=== PATIENT | female | born 1945 | race Caucasian/White ===

== ENCOUNTER 2021-10-09 18:48 | Emergency (ER) | payer OTHER, BC ==
[~2021-10-09] VITALS: Ht 154.9 cm; Wt 56.2 kg
[2021-10-09 18:54] VITALS: BP 142/77
--- NOTE | 2021-10-09 19:10 | NUR ---
DR MEADOWS AT BEDSIDE FOR EVAL
--- NOTE | 2021-10-09 19:28 | NUR ---
75 Y/O FEMALE C/O HEADACHES, GENERAL WEAKNESS AND DIFFICULTY WALKING X1 MONTH, STATES SHE SAW HER PCP AND WAS REFERRED TO NEUROLOGIST BUT HAS NOT SEE HIM YET. DENIES CP, SOB. ERMD AT BEDSIDE FOR NIH, NIH 7, LEFT SIDED NEGLECT PMH: MULTIPLE MYELOMA NKA
[2021-10-09 19:31] LABS: BASOPHILS % (AUTO) 0.5 % (0.0-2.0); EOSINOPHILS # (AUTO) 0.1 K/uL (0-0.4); EOSINOPHILS % (AUTO) 1.2 % (0.0-4.0); HEMOGLOBIN 12.2 g/dL (12.0-16.0); LYMPHOCYTES # (AUTO) 3.1 K/uL (2.5-16.5); LYMPHOCYTES % (AUTO) 36.2 % (20.5-51.1); MEAN CORPUSCULAR HEMOGLOBIN 29 pg (27-31); MEAN CORPUSCULAR HGB CONC 34 g/dL (33-37); MONOCYTES # (AUTO) 1.1 K/uL (0.8-1.0); NEUTROPHILS # (AUTO) 4.2 K/uL (1.8-7.7); NEUTROPHILS % (AUTO) 49.1 % (42.2-75.2); PLATELET COUNT (AUTO) 315 K/uL (140-450); RED BLOOD CELL COUNT(AUTO) 4.19 MIL/uL (4.20-5.40); RED CELL DISTRIBUTION WIDTH 14.6 % (11.6-13.7); WHITE BLOOD COUNT (AUTO) 8.6 K/uL (4.8-10.8)
--- NOTE | 2021-10-09 19:34 | NUR ---
Pt report given to KRISTINA RN. Transfer of care at this time.
--- NOTE | 2021-10-09 19:42 | NUR ---
PT TAKEN TO CT VIA [facility]
[2021-10-09 20:00] LABS: PROTHROMBIN TIME 10.3 secs (10.8-13.4)
[2021-10-09] MEDS ORDERED: DEXAMETHASONE 10 MG/ML VIAL IVP ONE (20:05)
[2021-10-09 20:46] LABS: ALBUMIN 3.7 g/dL (3.4-5.0); ANION GAP 15.1 (8-16); ASPARTATE AMINOTRANSFERASE 16 U/L (15-37); CARBON DIOXIDE 24.8 mmol/L (21-32); CHLORIDE 102 mmol/L (98-107); GLUCOSE 89 mg/dL (74-106); POTASSIUM 3.9 mmol/L (3.5-5.1); SODIUM SERUM 138 mmol/L (136-145); TOTAL BILIRUBIN 0.5 mg/dL (0.0-1.0); UREA NITROGEN, BLOOD 19 mg/dL (7-18)
--- NOTE | 2021-10-09 21:03 | NUR ---
CALLED DAUGHTER VENICE TO COME TO THE HOSPITAL. THE ER DOCTOR WOULD LIKE TO SPEAK ABOUT PATIENT RESULTS AND PLAN OF CARE. PER DAUGHTER WILL ARRIVE SHORTLY.
--- NOTE | 2021-10-09 21:14 | NUR ---
DAUGHTER AT BEDSIDE
--- NOTE | 2021-10-09 21:17 | NUR ---
ER MD AT BEDSIDE SPEAKING WITH DAUGHTER AND PATIENT ABOUT TRANSPORTATION AND FURTHER PLAN OF CARE FOR PATIENT.
--- NOTE | 2021-10-09 21:27 | NUR ---
PATIENT ASSISTED TO THE BATHROOM VIA W/C
--- NOTE | 2021-10-10 00:33 | NUR ---
Patient to be transferred to [facility]. Is being transferred due to higher level of care. Receiving facility has accepting physician and available space. ER physician has signed transfer form. Patient or responsible democrat has agreed to transfer and signed form. Patient belongings inventoried and will be sent with patient. Copy of nursing notes, lab reports, EKG, Physicians Orders and X-rays to be sent with patient. Report called to [place] RN at receiving facility. [facility] ambulance service has been called for transfer. ETA is around 01:00.
--- NOTE | 2021-10-10 01:21 | NUR ---
[facility] HERE FOR TRANSFER
[2021-10-10 01:35] VITALS: BP 116/55
== END 2021-10-10 01:35 | disposition short-term general hospital (02) ==
LOC: MED 18:48 → EDBD 18:48 → MED 10-10 01:35
DX: G93.9 Disorder of brain, unspecified (principal); Z20.822 Contact with and (suspected) exposure to COVID-19
CPT/HCPCS: 36415; 70450; 71045; 80053; 84484; 85025; 85610; 85730; 87426; 93005; 96374; 99285; J1100; Q0092